=== PATIENT | male | born 1960 | race Caucasian/White ===

== ENCOUNTER 2024-01-19 15:40 | Emergency (ER) | payer OTHER, SELFPAY ==
[2024-01-19 15:40] VITALS: BP 109/85; PULSE 80; RESP 16; TEMP 36.4; O2SAT 98
--- NOTE | 2024-01-19 16:07 | ED.WOUNDLAC ---
HPI - Wound/Laceration General Chief Complaint: Extremity Injury, Upper Stated Complaint: lac to finger Source: patient Mode of arrival: ambulatory History of Present Illness HPI narrative: Patient is a 63-year-old male with significant past medical history that presents today for a laceration. Patient has a laceration to his right index finger. Lacerations at the tip underneath the nail bed the right index finger. Is about a 2 cm laceration. Is still bleeding currently. He sliced this with a knife accidentally cutting fish. Onset (ago): minute(s) Location: other Extremity Location: Right: hand ( Index finger) Place: home Patient tetanus UTD: Yes Context: accidental Associated symptoms: none Treatments prior to arrival: bandage Related Data Allergies Allergy/AdvReac Type Severity Reaction Status Date / Time No Known Allergies Allergy Verified 01/19/24 15:44 Review of Systems Review of Systems: All systems reviewed & are unremarkable except as noted in HPI and below Constitutional: Constitutional: Reports as per HPI Eyes: Eyes: Reports no additional eye complaints ENT: Reports system reviewed and no additional complaints, except as documented Cardiovascular: Cardiovascular: Reports no additional cardiovascular complaints Respiratory: Respiratory: Reports no additional respiratory complaints Gastrointestinal: Gastrointestinal: Reports no additional gastrointestinal complaints Genitourinary: Genitourinary: Reports no additional male genitourinary complaints Musculoskeletal: Musculoskeletal: Reports no additional musculoskeletal complaints Integumentary/Breasts: Skin/Breast: Reports skin ulcer ( 2 cm laceration to right index finger) Neurologic: Reports system reviewed and no additional complaints, except as documented Psychiatric: Psychiatric: Reports no additional psychiatric complaints Endocrine: Endocrine: Reports no additional endocrine complaints Hematologic/Lymphatic: Hematologic/Lymphatic: Reports no additional hematologic/lymphatic complaints Allergic/Immunologic: Allergic/Immunologic: Reports no additional allergic/immunologic complaints Exam Const: General: healthy appearing Nutritional Appearance: well nourished Orientation/consciousness: patient oriented x3 HENMT: Head: normal to inspection Ears: external ears normal Face/Nose/Sinus: Normal external nose present Eyes: Conjunctivae: conjunctivae normal Pupils: Equal, round and reactive pupils present Neck: Neck: normal visual inspection Chest: Chest palpation & inspection: normal inspection of the chest Resp: Effort & Inspection: normal respiratory effort Auscultation: clear to auscultation bilaterally Cardio: Rate: regular rate Rhythm: regular rhythm GI: GI Palp: Yes Soft to palpation Back/Spine/Pelvis: Back: no CVA tenderness Skin: General skin exam: normal color Rashes: no rashes Wounds: wounds noted Other: 2 cm laceration to right index finger tip Neuro: General: patient oriented x3 Cranial nerves: Yes Nystagmus not present Extrem: General: normal to inspection Psych: Mental Status: mental status grossly normal Affect: normal affect MDM - Wound/Laceration MDM Narrative Medical decision making narrative: patient is a 2 cm laceration to his right index finger underneath the nail bed. Need to stage this. Also he has lidocaine with epinephrine to stop the bleeding. And also to the area. Suture is normal Interrupted suture fashion. Differential Diagnosis Differential diagnosis: Likely laceration Medical Records Attestation: I reviewed the patient's medical records. Lab Data Attestation: I reviewed the patient's lab results. Discharge Plan Discharge Clinical Impression: Laceration, Finger injury Patient Disposition: Home, Self-Care Condition: Stable Instructions: Care For Your Stitches (ED) Additional Instructions: instructed patient get his stitches in 7-10 days at his PCP or Urg
[2024-01-19] MEDS: TETANUS,DIPHTHERIA,AC PERTUSSIS ADULT 0.5 ML (ADACEL) IM (16:36)
[2024-01-19] MEDS: LIDO 1%/EPINEPHRINE 1:100,000 20 ML VIAL INFILTRATE (16:42)
[2024-01-19 16:43] VITALS: BP 109/86; PULSE 80; RESP 16; TEMP 36.4; O2SAT 98
== END 2024-01-19 16:43 | disposition home or self-care (01) ==
LOC: CHSED 16:22
PROVIDERS: Emergency Provider Family Medicine; PCP Family Medicine
DX: S61.210A Laceration without foreign body of right index finger without damage to nail, initial encounter (principal); Z23 Encounter for immunization; W26.0XXA Contact with knife, initial encounter; Y92.009 Unspecified place in unspecified non-institutional (private) residence as the place of occurrence of the external cause
CPT/HCPCS: 12001; 90471; 90715; 99282